=== PATIENT | female | born 1995 | race Caucasian/White ===

== ENCOUNTER 2021-01-05 05:26 | Inpatient (IN) | payer BC ==
[~2021-01-05] VITALS: Ht 165.1 cm; Wt 80.7 kg
[2021-01-05 07:22] LABS: HEMOGLOBIN 12.7 gm/dl (12.3-15.3); RED BLOOD COUNT 4.32 M/UL (4.00-5.10); WHITE BLOOD COUNT 10.6 K/UL (4.5-11.0)
[2021-01-05] MEDS ORDERED: COLACE 100MG C100 MG PO (14:15)
[2021-01-05] MEDS ORDERED: IBUPROFEN600 MG PO (14:15)
[2021-01-06 06:01] LABS: HEMOGLOBIN 10.3 gm/dl (12.3-15.3)
== END 2021-01-06 18:01 | disposition home or self-care (01) | DRG 807 ==
LOC: OB 05:26
PROVIDERS: Obstetrics & Gynecology; ADMIT Obstetrics & Gynecology
PROC: 10E0XZZ Delivery of Products of Conception, External Approach (ICD-10-PCS; principal; 2021-01-05)
PROC: 0KQM0ZZ Repair Perineum Muscle, Open Approach (ICD-10-PCS; 2021-01-05)
PROC: 10907ZC Drainage of Amniotic Fluid, Therapeutic from Products of Conception, Via Natural or Artificial Opening (ICD-10-PCS; 2021-01-05)
PROC: 4A1HXCZ Monitoring of Products of Conception, Cardiac Rate, External Approach (ICD-10-PCS; 2021-01-05)
DX: O36.63X0 Maternal care for excessive fetal growth, third trimester, not applicable or unspecified (principal); Z37.0 Single live birth; Z3A.39 39 weeks gestation of pregnancy; Z90.49 Acquired absence of other specified parts of digestive tract; Z20.822 Contact with and (suspected) exposure to COVID-19
CPT/HCPCS: 36415; 80307; 81001; 82800; 85014; 85018; 85025; 86850; 86900; 86901; 90715; J2405; J2795; J3010; U0002